=== PATIENT | male | born 1935 | race Two or more races ===

== ENCOUNTER 2016-09-07 13:53 | Emergency (ER) | payer MEDICARE ==
[~2016-09-07] VITALS: Ht 167.6 cm; Wt 64.4 kg
[2016-09-07 15:10] LABS: Basophils # (auto) 0 uL; Basophils % (auto) 0.1 % (0.0-2.0); CONDITION Y; Eosinophils # (auto) 0 uL; Eosinophils % (auto) 0.3 % (0.0-7.0); Hematocrit 34.3 % (41.0-53.0); Hemoglobin 11.7 g/dL (13.5-17.5); Lymphocytes # (auto) 0.9 uL; Lymphocytes % (auto) 7.4 % (10.0-50.0); Mean Corpuscular Volume 93.9 fL (80.0-100.0); Mean Platelet Volume 7.9 fL (7.4-10.4); Monocytes # (auto) 0.9 uL; Monocytes % (auto) 7.4 % (0.0-12.0); Neutrophils # (auto) 9.9 uL; Neutrophils % (auto) 84.8 % (37.0-80.0); Platelet Count (auto) 339 10^3/uL (140-450); Red Cell Distribution Width 14.3 % (11.6-16.0); White Blood Cell 11.7 10^3/uL (4.4-10.8)
[2016-09-07 15:23] LABS: Albumin 2.7 g/dL (3.4-5.0); BUN/Creatinine Ratio 17.1; Bilirubin, Total 0.7 mg/dL (0.2-1.0); Calcium 7.4 mg/dL (8.5-10.1); Total Protein 6.6 g/dL (6.4-8.2)
[2016-09-07] MEDS ORDERED: TAMSULOSIN HYDROCHLORIDE 0.4 MG CAP PO ONE (16:15)
[2016-09-07] MEDS ORDERED: SODIUM CHLORIDE 0.9% 1,000 ML IV ONE (16:15)
[2016-09-07] MEDS ORDERED: POTASSIUM CHL 10% (20 MEQ/15ML) ORAL SOLN PO ONE (17:15)
[2016-09-07] MEDS: POTASSIUM CHL 20MEQ/100ML 100 ML IV SCH ×3 (17:55→21:02)
[2016-09-07 18:21] LABS: Urine Bilirubin Negative (Negative); Urine Color Yellow (Yellow); Urine Glucose Normal (Normal); Urine Ketone TRACE (Negative); Urine Nitrite Negative (Negative); Urine RBC 13 /hpf (0 - 3); Urine Squamous Epithelial Cell FEW /hpf (<5); Urine Urobilinogen Normal (Negative); Urine WBC Clumps PRESENT /hpf (None Seen)
[2016-09-07 18:27] LABS: Urine Blood 1+ /uL (Negative)
[2016-09-07 19:40] VITALS: BP 180/87
== END 2016-09-07 21:08 | disposition home or self-care (01) ==
LOC: ER 13:58
DX: N40.1 Benign prostatic hyperplasia with lower urinary tract symptoms (principal); R35.0 Frequency of micturition; I10 Essential (primary) hypertension; H91.3 Deaf nonspeaking, not elsewhere classified; J44.9 Chronic obstructive pulmonary disease, unspecified; E87.6 Hypokalemia
CPT/HCPCS: 36415; 80053; 81001; 83735; 84443; 85025; 93005; 94761; 96360; 99285; J3480; J7030

== ENCOUNTER 2016-10-05 12:34 | Inpatient (IN) | payer OTHER ==
[~2016-10-05] VITALS: Ht 167.6 cm; Wt 64.4 kg
[~2016-10-05 12:34] MED LIST: FLU01T PO; POTA20TA53 PO
[2016-10-05 13:51] LABS: Basophils # (auto) 0 uL; Basophils % (auto) 0.2 % (0.0-2.0); CONDITION Y; Eosinophils # (auto) 0 uL; Eosinophils % (auto) 0.3 % (0.0-7.0); Hematocrit 30.4 % (41.0-53.0); Hemoglobin 10.4 g/dL (13.5-17.5); Lymphocytes # (auto) 0.8 uL; Lymphocytes % (auto) 8.4 % (10.0-50.0); Mean Corpuscular Volume 91.1 fL (80.0-100.0); Mean Platelet Volume 7.7 fL (7.4-10.4); Monocytes # (auto) 0.7 uL; Monocytes % (auto) 6.9 % (0.0-12.0); Neutrophils # (auto) 8.3 uL; Neutrophils % (auto) 84.2 % (37.0-80.0); Platelet Count (auto) 357 10^3/uL (140-450); White Blood Cell 9.9 10^3/uL (4.4-10.8)
[2016-10-05 14:10] LABS: Albumin 2.5 g/dL (3.4-5.0); BUN/Creatinine Ratio 14.3; Bilirubin, Total 0.5 mg/dL (0.2-1.0); Calcium 7.3 mg/dL (8.5-10.1); Total Protein 6.5 g/dL (6.4-8.2)
[2016-10-05 14:15] LABS: Potassium 2.4 mmol/L (3.5-5.1)
[2016-10-05] MEDS ORDERED: LIDOCAINE 1% HCL (LOCAL ANESTH.) INJ 20ML MDV ONE (14:54)
[2016-10-05] MEDS ORDERED: POTASSIUM CHL 20 Meq TABLET PO ONE ×2 (15:15→17:15)
[2016-10-05] MEDS ORDERED: LIDOCAINE 1% HCL (LOCAL ANESTH.) INJ 20ML MDV IJ ONE (15:30)
[2016-10-05] MEDS ORDERED: MORPHINE SULF INJ 2 MG/ML SYRINGE 1ML IV PRN ×2 (17:00)
[2016-10-05] MEDS ORDERED: HYDROcodone-ACET 5/325MG TAB PO PRN (17:00)
[2016-10-05] MEDS ORDERED: ACETAMINOPHEN 325 MG TAB PO PRN (17:00)
[2016-10-05] MEDS ORDERED: TEMAZEPAM 15 MG CAP PO PRN (17:00)
[2016-10-05] MEDS ORDERED: NITROGLYCERIN 0.4 MG SL TAB SL PRN (17:00)
[2016-10-05] MEDS ORDERED: ONDANSETRON HCL 4 MG/2 ML VIAL IV PRN (17:00)
[2016-10-05] MEDS ORDERED: DOCUSATE SOD 100 MG CAP PO PRN (17:00)
[2016-10-05] MEDS ORDERED: cefTRIAXone 1GM/50ML D5W 50 ML IV ONE (17:00)
[2016-10-05] MEDS ORDERED: ASCORBIC ACID 500 MG TAB PO ONE (17:30)
[2016-10-05] MEDS ORDERED: ZINC SULFATE 220 MG CAP PO ONE (17:30)
[2016-10-05] MEDS ORDERED: MULTIPLE VITAMIN TAB PO ONE (17:30)
[2016-10-05] MEDS ORDERED: FAMOTIDINE 20 MG TAB PO ONE (17:30)
[2016-10-05] MEDS: SODIUM CHLORIDE 0.9% 1,000 ML IV SCH (17:52)
[2016-10-05] MEDS: BOOST PLUS 8 ounce PO SCH (17:52)
[2016-10-05] MEDS: FLUDROCORTISONE ACETATE 0.1 MG TAB PO SCH (17:52)
[2016-10-05 20:38] LABS: Calcium 7.3 mg/dL (8.5-10.1)
[2016-10-05 20:42] LABS: Potassium 2.7 mmol/L (3.5-5.1)
[2016-10-05] MEDS: ASCORBIC ACID 500 MG TAB PO SCH (22:11)
[2016-10-05] MEDS: FAMOTIDINE 20 MG TAB PO SCH (22:11)
[2016-10-05 23:00] LABS: Albumin 2.4 g/dL (3.4-5.0); BUN/Creatinine Ratio 15.3; Bilirubin, Total 0.5 mg/dL (0.2-1.0); Calcium 7.1 mg/dL (8.5-10.1); Total Protein 6.4 g/dL (6.4-8.2)
[2016-10-06 04:19] LABS: Basophils # (auto) 0 uL; Basophils % (auto) 0.3 % (0.0-2.0); CONDITION Y; Eosinophils # (auto) 0 uL; Eosinophils % (auto) 0.3 % (0.0-7.0); Hematocrit 32.4 % (41.0-53.0); Hemoglobin 10.7 g/dL (13.5-17.5); Lymphocytes # (auto) 1.1 uL; Lymphocytes % (auto) 12.2 % (10.0-50.0); Mean Corpuscular Hgb Conc. 33.1 g/dL (32.0-36.0); Mean Corpuscular Volume 93.8 fL (80.0-100.0); Monocytes # (auto) 0.6 uL; Monocytes % (auto) 6.2 % (0.0-12.0); Neutrophils # (auto) 7.5 uL; Platelet Count (auto) 308 10^3/uL (140-450); Red Cell Distribution Width 14.9 % (11.6-16.0); White Blood Cell 9.3 10^3/uL (4.4-10.8)
[2016-10-06 04:42] LABS: Albumin 2.3 g/dL (3.4-5.0); BUN/Creatinine Ratio 17.4; Calcium 6.9 mg/dL (8.5-10.1)
[2016-10-06 04:45] LABS: Bilirubin, Total 0.5 mg/dL (0.2-1.0); Total Protein 6.3 g/dL (6.4-8.2)
[2016-10-06 04:56] LABS: Potassium 2.8 mmol/L (3.5-5.1)
[2016-10-06] MEDS: POTASSIUM CHL 20MEQ/100ML 100 ML IV SCH ×2 (05:45→08:21)
[2016-10-06 06:06] LABS: Urine Bilirubin Negative (Negative); Urine Color Yellow (Yellow); Urine Glucose Normal (Normal); Urine Ketone Negative (Negative); Urine Nitrite Negative (Negative); Urine RBC 31 /hpf (0 - 3); Urine Urobilinogen Normal (Negative); Urine WBC Clumps PRESENT /hpf (None Seen)
[2016-10-06 06:11] LABS: Urine Blood 2+ /uL (Negative)
[2016-10-06] MEDS: FLUDROCORTISONE ACETATE 0.1 MG TAB PO SCH (08:21)
[2016-10-06] MEDS: BOOST PLUS 8 ounce PO SCH ×2 (08:40→13:18)
[2016-10-06] MEDS ORDERED: cefTRIAXone 1GM/50ML D5W 50 ML IV SCH (09:00)
[2016-10-06] MEDS: SODIUM CHLORIDE 0.9% 1,000 ML IV SCH (09:50)
[2016-10-06] MEDS ORDERED: MULTIPLE VITAMIN TAB PO SCH (10:00)
[2016-10-06] MEDS ORDERED: POTASSIUM CHL 20 Meq TABLET PO SCH (10:00)
[2016-10-06] MEDS ORDERED: ZINC SULFATE 220 MG CAP PO SCH (10:00)
[2016-10-06] MEDS: FAMOTIDINE 20 MG TAB PO SCH (10:06)
[2016-10-06] MEDS: ASCORBIC ACID 500 MG TAB PO SCH (10:06)
[2016-10-06] MEDS ORDERED: POTASSIUM CHL 20MEQ/100ML 100 ML IV ONE (10:15)
[2016-10-06] MEDS ORDERED: LORazepam 2MG/ML-1ML VIAL IV ONE (10:15)
[2016-10-06] MEDS ORDERED: hydrALAZINE HCL 20 MG/ML VL IV PRN (12:30)
[2016-10-06] MEDS ORDERED: LOSARTAN POTASSIUM 25 MG TAB PO SCH (12:30)
[2016-10-06] MEDS ORDERED: POTASSIUM CHL 20 Meq TABLET PO ONE (12:45)
[2016-10-06] MEDS ORDERED: SPIRONOLACTONE 25 MG TAB PO ONE (12:45)
[2016-10-06 18:38] VITALS: BP 140/77
[2016-10-07] MEDS ORDERED: SPIRONOLACTONE 25 MG TAB PO SCH (10:00)
== END 2016-10-06 19:26 | disposition left against medical advice (07) | DRG 604 ==
LOC: ER 12:41 → TELE 12:42
PROVIDERS: ADMIT Internal Medicine; ATTEND Internal Medicine
PROC: 0HQ0XZZ Repair Scalp Skin, External Approach (ICD-10-PCS; principal; 2016-10-05)
DX: S01.01XA Laceration without foreign body of scalp, initial encounter (principal); E43 Unspecified severe protein-calorie malnutrition; I13.0 Hypertensive heart and chronic kidney disease with heart failure and stage 1 through stage 4 chronic kidney disease, or unspecified chronic kidney disease; R55 Syncope and collapse; D63.8 Anemia in other chronic diseases classified elsewhere; I50.9 Heart failure, unspecified; E83.51 Hypocalcemia; E87.6 Hypokalemia; R00.1 Bradycardia, unspecified; J44.9 Chronic obstructive pulmonary disease, unspecified; N18.3 Chronic kidney disease, stage 3 (moderate); E88.09 Other disorders of plasma-protein metabolism, not elsewhere classified; W18.39XA Other fall on same level, initial encounter; Y93.89 Activity, other specified; Y92.89 Other specified places as the place of occurrence of the external cause; Y99.8 Other external cause status; Z80.3 Family history of malignant neoplasm of breast; Z82.49 Family history of ischemic heart disease and other diseases of the circulatory system; Z68.22 Body mass index [BMI] 22.0-22.9, adult
CPT/HCPCS: 12004; 36415; 70450; 71010; 80048; 80053; 81001; 84484; 85025; 87086; 93005; 93306; 93886; 96361; 96365; 96367; 96375; J0696; J2001; J3480

== ENCOUNTER 2016-11-30 14:37 | Emergency (ER) | payer OTHER ==
[~2016-11-30] VITALS: Ht 170.2 cm; Wt 64.4 kg
[2016-11-30] MEDS ORDERED: SODIUM CHLORIDE 0.9% 1,000 ML IV ONE (15:29)
[2016-11-30] MEDS ORDERED: KETOROLAC TROMETH 30 MG/ML 1ML VIAL IV ONE (15:30)
[2016-11-30] MEDS ORDERED: METOCLOPRAMIDE HCL 5MG/ml INJ 2ml VIAL IV ONE (15:30)
[2016-11-30 16:50] LABS: Basophils # (auto) 0 uL; Basophils % (auto) 0.4 % (0.0-2.0); CONDITION Y; Eosinophils # (auto) 0.2 uL; Eosinophils % (auto) 2.2 % (0.0-7.0); Hematocrit 35.7 % (41.0-53.0); Hemoglobin 12.1 g/dL (13.5-17.5); Lymphocytes # (auto) 0.9 uL; Lymphocytes % (auto) 10.7 % (10.0-50.0); Mean Corpuscular Hemoglobin 31.5 pg (28.0-32.0); Mean Corpuscular Hgb Conc. 33.8 g/dL (32.0-36.0); Mean Corpuscular Volume 93.1 fL (80.0-100.0); Mean Platelet Volume 8.1 fL (6.9-10.8); Monocytes # (auto) 0.7 uL; Monocytes % (auto) 8.3 % (0.0-12.0); Neutrophils # (auto) 6.5 uL; Neutrophils % (auto) 78.4 % (37.0-80.0); Platelet Count (auto) 294 10^3/uL (140-450); Red Cell Distribution Width 16.7 % (11.8-14.3); White Blood Cell 8.3 10^3/uL (4.4-10.8)
[2016-11-30 17:19] LABS: BUN/Creatinine Ratio 16.9; Calcium 7.8 mg/dL (8.5-10.1); Magnesium 2.4 mg/dL (1.6-2.6); Potassium 4.1 mmol/L (3.5-5.1)
[2016-11-30 17:22] LABS: Bilirubin, Total 0.4 mg/dL (0.2-1.0); Total Protein 6.8 g/dL (6.4-8.2)
[2016-11-30 17:50] VITALS: BP 174/108
== END 2016-11-30 18:10 | disposition home or self-care (01) ==
LOC: ER 14:41
DX: S01.01XA Laceration without foreign body of scalp, initial encounter (principal); S60.221A Contusion of right hand, initial encounter; S60.222A Contusion of left hand, initial encounter; J44.9 Chronic obstructive pulmonary disease, unspecified; I11.0 Hypertensive heart disease with heart failure; I50.9 Heart failure, unspecified; E44.0 Moderate protein-calorie malnutrition; Z68.22 Body mass index [BMI] 22.0-22.9, adult; Z79.899 Other long term (current) drug therapy; W18.39XA Other fall on same level, initial encounter; Y93.89 Activity, other specified; Y92.89 Other specified places as the place of occurrence of the external cause; Y99.8 Other external cause status
CPT/HCPCS: 12002; 36415; 70450; 72125; 73130; 80053; 83735; 85025; 93005; 96374; 96375; 99285; J1885; J2765

== ENCOUNTER 2016-12-08 11:37 | Emergency (ER) | payer OTHER ==
[~2016-12-08] VITALS: Ht 170.2 cm; Wt 62.6 kg
[2016-12-08 11:58] VITALS: BP 84/59
== END 2016-12-08 13:16 | disposition home or self-care (01) ==
LOC: ER 11:37
DX: S01.01XD Laceration without foreign body of scalp, subsequent encounter (principal); X58.XXXD Exposure to other specified factors, subsequent encounter; Y99.8 Other external cause status; Y92.89 Other specified places as the place of occurrence of the external cause

== ENCOUNTER 2017-06-28 08:58 | Emergency (ER) | payer OTHER ==
[~2017-06-28] VITALS: Ht 170.2 cm; Wt 65.3 kg
[2017-06-28 09:54] LABS: Basophils # (auto) 0 uL; Basophils % (auto) 0.3 % (0.0-2.0); Eosinophils # (auto) 0.2 uL; Eosinophils % (auto) 2.7 % (0.0-7.0); Hemoglobin 12.8 g/dL (13.5-17.5); Lymphocytes % (auto) 11.8 % (10.0-50.0); Mean Corpuscular Hemoglobin 32.1 pg (28.0-32.0); Mean Corpuscular Hgb Conc. 33.7 g/dL (32.0-36.0); Monocytes # (auto) 0.5 uL; Monocytes % (auto) 6.1 % (0.0-12.0); Neutrophils # (auto) 6.9 uL; Neutrophils % (auto) 79.1 % (37.0-80.0); Nucleated Red Blood Cells % 0.1 %; Platelet Count (auto) 304 10^3/uL (140-450); Red Cell Distribution Width 15.4 % (11.8-14.3); White Blood Cell 8.8 10^3/uL (4.4-10.8)
[2017-06-28 10:03] LABS: Alanine Aminotransferase 12 U/L (16-61); Albumin 3.2 g/dL (3.4-5.0); Anion Gap 8 (5-15); Blood Urea Nitrogen 29 mg/dL (7-18); Calcium 7.6 mg/dL (8.5-10.1); Carbon Dioxide 22 mmol/L (21-32); Chloride 111 mmol/L (98-107); Glucose 88 mg/dL (74-106); Magnesium 2.4 mg/dL (1.6-2.6); Potassium 4.3 mmol/L (3.5-5.1); Sodium 141 mmol/L (136-145)
[2017-06-28 10:08] LABS: Alkaline Phosphatase 90 U/L (45-117); Aspartate Aminotransferase 11 U/L (15-37); BUN/Creatinine Ratio 17.7; Bilirubin, Total 0.4 mg/dL (0.2-1.0); GFR African American 52 mL/min; GFR Non-African American 43 mL/min; Total Protein 7.1 g/dL (6.4-8.2)
[2017-06-28] MEDS ORDERED: SODIUM CHLORIDE 0.9% 1,000 ML IV ONE (10:29)
[2017-06-28 12:53] VITALS: BP 122/88
[2017-06-28 13:01] LABS: Urine Bacteria FEW /hpf (None Seen); Urine Blood 1+ /uL (Negative); Urine Mucus FEW (None Seen); Urine Specific Gravity 1.021 (1.001-1.035); Urine WBC 1407 /hpf (0 - 3)
[2017-07-05] MEDS ORDERED: FLU01T PO (17:14)
[2017-07-05] MEDS ORDERED: TAMS0.4C36 PO (17:14)
[2017-07-05] MEDS ORDERED: POTA10TA51 PO (17:14)
[2017-07-05] MEDS ORDERED: DICL-176 PO (17:14)
[2017-07-05] MEDS ORDERED: CIPR-187 PO (17:14)
== END 2017-06-28 14:14 | disposition home or self-care (01) ==
LOC: ER 08:58
DX: N39.0 Urinary tract infection, site not specified (principal); J44.9 Chronic obstructive pulmonary disease, unspecified; I50.9 Heart failure, unspecified; I11.0 Hypertensive heart disease with heart failure; E44.1 Mild protein-calorie malnutrition; M16.11 Unilateral primary osteoarthritis, right hip; N40.0 Benign prostatic hyperplasia without lower urinary tract symptoms; Z68.22 Body mass index [BMI] 22.0-22.9, adult; N28.9 Disorder of kidney and ureter, unspecified; Z79.899 Other long term (current) drug therapy
CPT/HCPCS: 36415; 71046; 73502; 74176; 80053; 81001; 83690; 83735; 84484; 85025; 93005; 94761; 96360; 96361; 99285; J7030

== ENCOUNTER 2017-07-26 07:46 | Inpatient (IN) | payer OTHER ==
[~2017-07-26] VITALS: Ht 167.6 cm; Wt 61.1 kg
[~2017-07-26 07:46] MED LIST changes: +CIPR-187 PO; +DICL-176 PO; +POTA10TA51 PO; +TAMS0.4C36 PO
[2017-07-26 10:04] LABS: Urine Bacteria FEW /hpf (None Seen); Urine Blood TRACE /uL (Negative); Urine Hyaline Cast FEW /lpf (0 - 2); Urine Mucus FEW (None Seen); Urine Specific Gravity 1.017 (1.001-1.035); Urine WBC 39 /hpf (0 - 3)
[2017-07-26 10:04] LABS: Basophils # (auto) 0 uL; Basophils % (auto) 0.1 % (0.0-2.0); Eosinophils # (auto) 0.1 uL; Hematocrit 39.2 % (41.0-53.0); Lymphocytes % (auto) 13.5 % (10.0-50.0); Mean Corpuscular Hgb Conc. 33.2 g/dL (32.0-36.0); Mean Corpuscular Volume 96.4 fL (80.0-100.0); Monocytes # (auto) 0.4 uL; Monocytes % (auto) 5.8 % (0.0-12.0); Neutrophils % (auto) 79.6 % (37.0-80.0); Nucleated Red Blood Cells % 0.1 %; Platelet Count (auto) 276 10^3/uL (140-450); Red Blood Cells 4.07 10^6/uL (4.5-5.90); White Blood Cell 7.6 10^3/uL (4.4-10.8)
[2017-07-26 10:19] LABS: Alanine Aminotransferase 20 U/L (16-61); Albumin 3.1 g/dL (3.4-5.0); Alkaline Phosphatase 91 U/L (45-117); Anion Gap 13 (5-15); Aspartate Aminotransferase 18 U/L (15-37); BUN/Creatinine Ratio 20.6; Bilirubin, Total 0.4 mg/dL (0.2-1.0); Blood Urea Nitrogen 33 mg/dL (7-18); Carbon Dioxide 21 mmol/L (21-32); Chloride 110 mmol/L (98-107); GFR African American 53 mL/min; GFR Non-African American 44 mL/min; Glucose 91 mg/dL (74-106); INR 1.05 (0.9-1.15); Magnesium 2.6 mg/dL (1.6-2.6); Potassium 4.2 mmol/L (3.5-5.1); Prothrombin Time 11.4 sec (9.37-12.3); Sodium 144 mmol/L (136-145); Total Protein 6.9 g/dL (6.4-8.2)
[2017-07-26] MEDS ORDERED: MORPHINE SULFATE 4 MG/ML SYR/VIAL IV ONE (14:15)
[2017-07-26] MEDS ORDERED: ONDANSETRON HCL 4 MG/2 ML VIAL IV PRN (14:30)
[2017-07-26] MEDS ORDERED: cefTRIAXone 1GM/10ml IVPUSH 10 ML IV ONE (14:30)
[2017-07-26] MEDS ORDERED: MORPHINE SULFATE 4 MG/ML SYR/VIAL IV PRN ×2 (14:30)
[2017-07-26] MEDS ORDERED: TEMAZEPAM 15 MG CAP PO PRN (14:30)
[2017-07-26] MEDS ORDERED: NITROGLYCERIN 0.4 MG SL TAB SL PRN (14:30)
[2017-07-26] MEDS ORDERED: ACETAMINOPHEN 325 MG TAB PO PRN (14:30)
[2017-07-26] MEDS ORDERED: DOCUSATE SOD 100 MG CAP PO PRN (14:30)
[2017-07-26] MEDS ORDERED: LACTULOSE 20Gm/30ML SOLN PO ONE (16:30)
[2017-07-26] MEDS ORDERED: BISACODYL 10 MG RECT SUPP PR ONE (16:30)
[2017-07-26] MEDS: HYDROcodone-ACET 5/325MG TAB PO PRN (17:17)
[2017-07-26] MEDS ORDERED: TAMSULOSIN HYDROCHLORIDE 0.4 MG CAP PO SCH (18:00)
[2017-07-26] MEDS: BOOST PLUS 8 ounce PO SCH (18:13)
[2017-07-26] MEDS: FLUDROCORTISONE ACETATE 0.1 MG TAB PO SCH (18:13)
[2017-07-26] MEDS: SENNA 8.6 MG TAB PO SCH (21:58)
[2017-07-26] MEDS: TERAZOSIN HCL 1 MG CAP PO SCH (21:58)
[2017-07-26] MEDS: SODIUM CHLOR 0.9% PF (SALINE LOCK) 10ML VIAL/SYR IV SCH (21:59)
[2017-07-26 22:00] VITALS: BP 103/70
[2017-07-26] MEDS ORDERED: POTASSIUM CHL 10 Meq TABLET PO SCH (22:00)
[2017-07-27 05:00] VITALS: BP 153/90
[2017-07-27 05:30] LABS: Basophils # (auto) 0 uL; Basophils % (auto) 0.1 % (0.0-2.0); Eosinophils # (auto) 0.1 uL; Eosinophils % (auto) 1.1 % (0.0-7.0); Hematocrit 36.5 % (41.0-53.0); Hemoglobin 12.2 g/dL (13.5-17.5); Lymphocytes # (auto) 1.3 uL; Lymphocytes % (auto) 16.3 % (10.0-50.0); Mean Corpuscular Hemoglobin 32.2 pg (28.0-32.0); Mean Corpuscular Hgb Conc. 33.5 g/dL (32.0-36.0); Mean Corpuscular Volume 96.1 fL (80.0-100.0); Monocytes # (auto) 0.6 uL; Monocytes % (auto) 7.5 % (0.0-12.0); Nucleated Red Blood Cells % 0.1 %; Platelet Count (auto) 260 10^3/uL (140-450); Red Cell Distribution Width 14.8 % (11.8-14.3); White Blood Cell 7.9 10^3/uL (4.4-10.8)
[2017-07-27 05:39] LABS: Albumin 2.9 g/dL (3.4-5.0)
[2017-07-27 05:41] LABS: BUN/Creatinine Ratio 24.4
[2017-07-27 05:43] LABS: Bilirubin, Total 0.4 mg/dL (0.2-1.0); Total Protein 6.7 g/dL (6.4-8.2)
[2017-07-27] MEDS: SODIUM CHLOR 0.9% PF (SALINE LOCK) 10ML VIAL/SYR IV SCH ×3 (05:46→21:23)
[2017-07-27] MEDS: BOOST PLUS 8 ounce PO SCH ×3 (07:36→17:37)
[2017-07-27] MEDS: FLUDROCORTISONE ACETATE 0.1 MG TAB PO SCH ×3 (07:36→17:38)
[2017-07-27 09:00] VITALS: BP 116/62
[2017-07-27] MEDS: cefTRIAXone 1GM/10ml IVPUSH 10 ML IV SCH (09:01)
[2017-07-27] MEDS: MULTIPLE VITAMIN TAB PO SCH (10:00)
[2017-07-27 13:00] VITALS: BP 107/74
[2017-07-27] MEDS: LACTULOSE 20Gm/30ML SOLN PO SCH (14:00)
[2017-07-27] MEDS: FINASTERIDE 5 MG TAB PO SCH (14:00)
[2017-07-27 17:00] VITALS: BP 96/64
[2017-07-27] MEDS: HYDROcodone-ACET 5/325MG TAB PO PRN ×2 (17:22→21:25)
[2017-07-27] MEDS: TERAZOSIN HCL 1 MG CAP PO SCH (21:24)
[2017-07-27] MEDS: SENNA 8.6 MG TAB PO SCH (21:25)
[2017-07-27 22:00] VITALS: BP 103/68
[2017-07-28 05:00] VITALS: BP 141/86
[2017-07-28] MEDS: SODIUM CHLOR 0.9% PF (SALINE LOCK) 10ML VIAL/SYR IV SCH ×2 (05:31→12:22)
[2017-07-28] MEDS: LACTULOSE 20Gm/30ML SOLN PO SCH (08:10)
[2017-07-28] MEDS: BOOST PLUS 8 ounce PO SCH ×3 (08:10→17:46)
[2017-07-28] MEDS: MULTIPLE VITAMIN TAB PO SCH (08:10)
[2017-07-28] MEDS: FLUDROCORTISONE ACETATE 0.1 MG TAB PO SCH ×3 (08:10→18:00)
[2017-07-28] MEDS: cefTRIAXone 1GM/10ml IVPUSH 10 ML IV SCH (08:10)
[2017-07-28 09:00] VITALS: BP 160/96
[2017-07-28] MEDS: FINASTERIDE 5 MG TAB PO SCH (09:26)
[2017-07-28] MEDS: HYDROcodone-ACET 5/325MG TAB PO PRN ×2 (11:04→18:02)
[2017-07-28 13:00] VITALS: BP 112/78
[2017-07-28] MEDS ORDERED: MULTTAB99 PO (16:12)
[2017-07-28] MEDS ORDERED: FIN5T PO (16:12)
[2017-07-28] MEDS ORDERED: FLU01T PO (16:12)
[2017-07-28] MEDS ORDERED: SENN-51 PO (16:12)
[2017-07-28] MEDS ORDERED: NUTR-340 PO (16:12)
[2017-07-28] MEDS ORDERED: NITR-52 PO (16:19)
[2017-07-28 17:00] VITALS: BP 145/90
[2017-07-28 18:09] VITALS: BP 108/67
[2017-07-28 18:30] VITALS: BP 103/68
== END 2017-07-28 18:50 | disposition home or self-care (01) | DRG 690 ==
LOC: ER 07:51 → TELE 07:52 → TELE-WESTW 15:47
PROVIDERS: ADMIT Internal Medicine; ATTEND Hospitalist
DX: N39.0 Urinary tract infection, site not specified (principal); E44.0 Moderate protein-calorie malnutrition; I50.42 Chronic combined systolic (congestive) and diastolic (congestive) heart failure; I13.0 Hypertensive heart and chronic kidney disease with heart failure and stage 1 through stage 4 chronic kidney disease, or unspecified chronic kidney disease; E83.51 Hypocalcemia; N18.3 Chronic kidney disease, stage 3 (moderate); I95.1 Orthostatic hypotension; K57.30 Diverticulosis of large intestine without perforation or abscess without bleeding; D63.8 Anemia in other chronic diseases classified elsewhere; G47.00 Insomnia, unspecified; N28.1 Cyst of kidney, acquired; J44.9 Chronic obstructive pulmonary disease, unspecified; M51.36 Other intervertebral disc degeneration, lumbar region; N20.0 Calculus of kidney; N40.1 Benign prostatic hyperplasia with lower urinary tract symptoms; R33.8 Other retention of urine; Z80.3 Family history of malignant neoplasm of breast; Z82.49 Family history of ischemic heart disease and other diseases of the circulatory system; Z79.899 Other long term (current) drug therapy; Z68.21 Body mass index [BMI] 21.0-21.9, adult
CPT/HCPCS: 36415; 51702; 71045; 73560; 74176; 76705; 80053; 81001; 82962; 83735; 83880; 84153; 84154; 84484; 85025; 85610; 85730; 87081; 87086; 94761; 96365; 96375; 97110; 97530